=== PATIENT | male | born 1950 | race Caucasian/White ===

== ENCOUNTER 2022-10-01 09:59 | Outpatient (CLI) | payer MEDICARE, SELFPAY | END 2022-10-01 10:00 | disposition home or self-care (01) | LOC: OP CLINIC 10:02 | PROVIDERS: PCP Family Medicine; Visit Provider Internal Medicine | DX: Z12.11 Encounter for screening for malignant neoplasm of colon (principal) | CPT/HCPCS: 45378; J2250; J3010 ==

== ENCOUNTER 2023-01-21 08:11 | Outpatient (CLI) | payer MEDICARE, SELFPAY | END 2023-01-21 08:12 | disposition home or self-care (01) | PROVIDERS: PCP Family Medicine; Visit Provider Family Medicine | DX: R41.3 Other amnesia (principal); Z12.5 Encounter for screening for malignant neoplasm of prostate | CPT/HCPCS: 80053; 84153; 84443 ==

== ENCOUNTER 2023-02-01 07:44 | Outpatient (CLI) | payer MEDICARE, SELFPAY ==
--- NOTE | 2023-02-01 08:00 | CRLHL7_ITS ---
For Patients: As a result of the Century Cures Act, medical imaging exams and procedure reports are released immediately into your electronic medical record. You may view this report before your referring provider. If you have questions, please contact your health care provider. INDICATION: Memory loss. TECHNIQUE: Multiplanar multisequence noncontrast MR images acquired through the brain. COMPARISON: None. FINDINGS: Prominence of the ventricles and sulci compatible with mild diffuse cerebral volume loss. No mass effect or midline shift. Small T2 FLAIR hyperintensities scattered in the supratentorial white matter, nonspecific though typical for mild chronic microvascular ischemic changes. No intracranial hemorrhage or pathologic extra-axial fluid collection. No diffusion restriction to suggest acute infarction. The major arterial flow voids of the skullbase are preserved. The globes are symmetric. Hypoplastic right maxillary sinus. Mild paranasal sinus mucosal thickening. Trace bilateral mastoid effusions. IMPRESSION: 1. No acute infarction, mass effect, or intracranial hemorrhage. 2. Mild chronic microvascular ischemic changes and diffuse cerebral volume loss. Dictated by Marco Keller MD @ 02/01/2023 9:37:29 AM (Electronically Signed)
== END 2023-02-01 07:45 | disposition home or self-care (01) ==
LOC: MRI 07:45
PROVIDERS: PCP Family Medicine; Visit Provider Family Medicine
DX: R41.3 Other amnesia (principal); I67.82 Cerebral ischemia
CPT/HCPCS: 70551

== ENCOUNTER 2024-01-27 09:24 | Outpatient (CLI) | payer MEDICARE, SELFPAY | END 2024-01-27 09:25 | disposition home or self-care (01) | PROVIDERS: PCP Family Medicine; Visit Provider Family Medicine | DX: Z12.5 Encounter for screening for malignant neoplasm of prostate (principal); Z13.220 Encounter for screening for lipoid disorders; R41.3 Other amnesia | CPT/HCPCS: 80048; 80061; G0103 ==

== ENCOUNTER 2024-02-20 06:56 | Day surgery (SDC) | payer MEDICARE, SELFPAY ==
[2024-02-20] VITALS (13 sets, daily range): BP systolic 112–142; BP diastolic 63–81; PULSE 53–76; RESP 16; TEMP 36.2–36.7; O2SAT 94–96; BMI 32.1
--- OUTSIDE RECORDS SUMMARY | 2024-02-20 06:59 | XMS_ITS | Encounter Summary ---
Author Name Unknown Organization [place] Address [address] [place] [address] Care Team Providers Care Framing Machine Tender Name Role Phone Daniel Jc MD Unavailable [facility] Unavailabl e Encounter Details Date Type Department Care Team (Late st Contact Info) Description 02/01/2023 MyC Medical Advice [facility] [id number] [place] [id number] Eleni Elizabeth CMA Social History Tobacco Use Types Packs/Day Years Used Date Smoking Tobacco: Former Cigarettes 1.5 21 0 12/28/1963 - 12/27/1984 Smokeless Tobacco: Never Alcohol Use Standard Drinks/Week Comments No 0 (1 standard drink = 0.6 oz pur e alcohol) Stopped 1982 Social Connection and Isolat ion Panel [NHANES] Answer Date Recorded In a typical week, how many times do you talk on the phone with family, friends, or neighbors? More than three times a week 09/25/2021 How often do you get togethe r with friends or relatives? Three times a week 09/25/2021 How often do you attend chur ch or restorationist services? More than 4 times per year 09/25/2021 Do you belong to any clubs o r organizations such as pentecostalism groups, unions, fraternal or athletic groups, or school groups? Yes 09/25/2021 Attends Club or Organization Meetings Not on ami e 09/25/2021 Are you , , di vorced, , never , or living with a partner? 09/25/2021 AUDIT-C Answer Date Recorded Q1: How often do you have a drink containing alc ohol? Never 09/25/2021 Q2: How many drinks containi ng alcohol do you have on a typical day when you are drinking? Patient declined 09/25/2021 Q3: How often do you have si x or more drinks on one occasion? Patient declined 09/25/2021 Overall Financial Resource Strain (CARDIA) Answe r Date Recorded How hard is it for you to pa y for the very basics like food, housing, medical care, and heating? Not very hard 09/25/2021 PHQ-2 Answer Date Recorded PHQ-2 Score 1 09/25/2021 [facility] - Occupational Stress Questionnaire Answer Date Recorded Do you feel stress - tense, restless, nervous, or anxious, or unable to sleep at night because your mind is troubled all the time - these days? Only a little 09/25/2021 Exercise Vital Sign Answer Date Recorde d On average, how many days pe r week do you engage in moderate to strenuous exercise (like a brisk walk)? 3 days 09/25/2021 On average, how many minutes do you engage in exercise at this level? 30 min 09/25/2021 Hunger Vital Sign Answer Date Recorded Within the past 12 months, y ou worried that your food would run out before you got the money to buy more. Never true 09/25/20 21 Within the past 12 months, t he food you bought just didn't last and you didn't have money to get more. Never true 09/25/2021 PRAPARE - Transportation Answer Date Re corded In the past 12 months, has l ack of transportation kept you from medical appointments or from getting medications? No 09/09 In the past 12 months, has l ack of transportation kept you from meetings, work, or from getting things needed for daily living? No 09/25/2021 Housing Stability Vital Sign Answer Jeffy e Recorded In the last 12 months, was t here a time when you were not able to pay the mortgage or rent on time? Patient refused 09/25/20 21 In the last 12 months, how many places have you lived? 1 09/25/2021 In the last 12 months, was t here a time when you did not have a steady place to sleep or slept in a alf (including now)? No 09/25/2021 Sex and Gender Information Value Date Recorded Sex Assigned at Male 05/08/2021 9:40 AM CDT Gender Identity Not on file Sexual Orientation Straight 05/08/2021 9: 40 AM CDT documented as of this encounter Plan of Treatment Not on file documented as of this encounter Visit Diagnoses Not on filedocumented in this encounter Care Teams Framing Machine Tender Relationship Specialty [place] [address] [place] [address] Assigned PCP 12/04/22 09/30/23 [facility] [address] [place] [address] Assigned PCP 11/03/23 documented as of this encounter
--- OUTSIDE RECORDS SUMMARY | 2024-02-20 06:59 | XMS_ITS | Clinical Summary ---
Author Name Unknown Organization [place] Address [address] [place] [address]. [place] [address] Care Team Providers Care Technology Methodology Consultant Name Role Phone [facility] Unavailabl e Allergies No known active allergies Medications Medication Sig Dispensed Refills Start Date End Date Status MULTIVITAMINS OR TABS ONE DAILY 0 0 10/07/2009 Active Cholecalciferol (VITAMIN D) 2000 UNIT CAPS Take by mouth. One daily 08/31/2011 Active fish oil-omega-3 fatty acids (FISH OIL) 1000 MG capsule Take by mouth. ONE CAPSULE DAILY 180 capsule 11 08/31/2011 Active fluorouracil (EFUDEX) 5 % cream 03/17/2017 Active magnesium oxide (MAG-OX) 400 (241.3 Mg) MG tablet Take 1 tablet (400 mg) by mouth daily 08/17/2019 Active valACYclovir (VALTREX) 1000 mg tabletIndications:Re current cold sores Take 2 tablets (2,000 mg) by mouth 2 times daily 16 tablet 11 08/17/2019 Active Active Problems Problem Noted Date Diagnosed Date Leukocytopenia 01/02/2014 Advanced directives, counseling/discussion 08/31 Overview: Ordered, PT given brochure. Advance Care Planning 08/23/2016: ACP Review of Chart / Resources Provided: Reviewed chart for advance care plan. Nate Faustin Steven has no plan or code status on file however states presence of ACP document. Copy requested. Confirmed code status reflects current choices pending receipt of document/advance care plan review. Confirmed/documented legally designated decision makers. Added by Padmini Bush Resolved Problems Problem Noted Date Diagnosed Date Resolved Date CARDIOVASCULAR SCREENING; LD L GOAL LESS THAN 160 08/09/2010 08/20/2015 Immunizations Name Administration Dates Next Due Influenza (H1N1) 10/07/2009 Influenza (High Dose) 3 nella nt vaccine 08/17/2019,06/19/2018,08/30/2017,2016,08/23/2016,08/20/2015,07/12/2014 Influenza (IIV3) PF 06/13/2013, 2,06/10/2011,2004,08/14/2003 Influenza Vaccine 65+ (Fluzone HD) 07/25/2021, Pneumo Conj 13-V (2009&after) 08/20/2015 Pneumococcal 23 valent 07/30/2013 TDAP Vaccine (Adacel) 08/30/2017,03/07/2008 Twinrix A/B 11/26/2010,05/26/2010,04/23/2010 Typhoid Oral 04/23/2010 Zoster recombinant adjuvante d (SHINGRIX) 04/06/2019,01/27/2019 Zoster vaccine, live 02/28/2014 Family History Medical History Relation Comments Cancer Father Lymph Node Cance r Diabetes Mother Depression Son 1 Schitzo-Affectiv e Colon Cancer No family hx of Relation Status Comments Brother 1 Alive Brother 2 Alive Brother 3 Alive Brother 4 Brother 5 Father Mother Son 1 Alive Son 2 Alive Social History Tobacco Use Types Packs/Day Years [...] 09/25/2021 How often do you attend chur or religion services? More than 4 times per year 09/25/2021 Do you belong to any clubs o r organizations such as scientology groups, unions, fraternal or athletic groups, or [...] Answer Date Recorded PHQ-2 Score 1 09/25/2021 [facility] - Occupational Stress Questionnaire Answer Date Recorded [...] place to sleep or slept in a intermediate (including now)? No 09/25/2021 Adolescent Education Answer Date Record ed Getting School Help Needed Not on file 07/01 Sex and Gender Information Value Date Recorded Sex Assigned at Male 05/08/2021 9:40 AM CDT Gender Identity Not on file Sexual Orientation Straight 05/08/2021 9: 40 AM CDT Last Filed Vital Signs Vital Sign Reading Time Taken Comments Blood Pressure 119/73 09/25/2021 9:02 AM SATURATOR TENDER Pulse 70 09/25/2021 9:02 AM SATURATOR TENDER Temperature 36.9 ??C (98.5 ??F) 09/25/2021 9:02 AM CS T Respiratory Rate 14 09/25/2021 9:02 AM SATURATOR TENDER Oxygen Saturation 97% 06/12/2021 7:22 AM CDT Inhaled Oxygen Concentration - - Weight 87.1 kg (192 lb) 09/25/2021 9:02 AM SATURATOR TENDER Height 170.2 cm (5' 7) 09/25/2021 9:02 AM SATURATOR TENDER Body Mass Index 30.07 09/25/2021 9:02 AM SATURATOR TENDER Plan of Treatment Health Maintenance Due Date Last Done Comments CT COLONOGRAPHY 1950 FIT 1950 FLEX SIG 1950 sDNA (Cologuard) 1950 RSV VACCINE ( & 60+) (1 - 1-dose 60+ series) 2008 LUNG CANCER SCREENING 08/27/2016 08/27/2015 , 03/17/2010, 10/09/2009 ANNUAL REVIEW OF HM ORDERS 09/24/2021 09/24/2020 FALL RISK ASSESSMENT 09/25/2022 09/25/2021, 09/24/2020, 09/24/2020, Additional history exists COVID-19 Vaccine ( season) 2023 07/25/2021, 01/13/2021, 12/23/2020 PHQ-2 (once per calendar year) 2023 09/25/2021, 06/12/2021, 09/24/2020, Additional history exists MEDICARE ANNUAL WELLNESS VISIT 01/22/2024 01/21/2023, 01/21/2023, 01/21/2023, Additional history exists INFLUENZA VACCINE (Season Ended) 2024 07/25/2021, 06/10/2020, 08/17/2019, Additional history exists GLUCOSE 09/25/2024 09/25/2021, 09/09, 08/30/2018, Additional history exists LIPID 09/25/2026 09/25/2021, 08/11, 08/23/2016, Additional history exists ADVANCE CARE PLANNING 09/26/2026 09/26/2021 , 09/24/2020, 08/17/2019, Additional history exists DTAP/TDAP/TD IMMUNIZATION (3 - Td or Tdap) 08/30/2027 08/30/2017, 03/07/2008 COLONOSCOPY 10/01/2027 10/01/2022, 1202/2017, 09/13/2017, Additional history exists COLORECTAL CANCER SCREENING 10/01/2027 Pneumococcal Vaccine: 65+ Years Completed 08/20/2015, 07/30/2013 HEPATITIS C SCREENING Completed 08/23/2016 ZOSTER IMMUNIZATION Completed 04/06/2019, 01/27/2019, 02/28/2014 HPV IMMUNIZATION Aged Out No longer e ligible based on patient's age to complete this topic IPV IMMUNIZATION Aged Out No longer e ligible based on patient's age to complete this topic MENINGITIS IMMUNIZATION Aged Out No l onger eligible based on patient's age to complete this topic RSV MONOCLONAL ANTIBODY Aged Out No l onger eligible based on patient's age to complete this topic Procedures Procedure Name Priority Date/Time Associated Diagnosis Comments BASIC METABOLIC PANEL Routine 09/25/2021 10:10 AM SATURATOR TENDER Screening for diabetes mellitus LIPID REFLEX TO DIRECT LDL PANEL Routine 09/25/2021 10:10 AM SATURATOR TENDER Lipid screening COLONOSCOPY Routine 09/13/2017 9:37 AM SATURATOR TENDER HEPATITIS C ANTIBODY Routine 08/23/2016 7:45 AM SATURATOR TENDER Need for hepatitis C screening test CT CHEST W/O CONTRAST Routine 08/27/2015 11:34 AM SATURATOR TENDER Pulmonary nodule, left HC VENOUS COLLECTION Routine 12/21/2000 1:37 PM SATURATOR TENDER Acute Bronchitis from Last 3 Months or Most Recently Relevant to Health Maintenance Results * (ABNORMAL) Lipid panel reflex to direct LDL Fasting (09/25/2021 10:10 AM SATURATOR TENDER) Pathologist [facility] Cholesterol 182 <200 mg/dL 09/29/2021 8:41 AM SATURATOR TENDER [facility] Triglycerides 45 <150 mg/dL 09/29/2021 8:41 AM SATURATOR TENDER [facility] Direct Measure HDL 64 >=40 mg/dL 09/29/2021 8:41 AM SATURATOR TENDER [facility] LDL Cholesterol Calculated 109(H) <=100 mg/dL 09/29/2021 8:41 AM SATURATOR TENDER [facility] Non HDL Cholesterol 118 <130 mg/dL 09/29/2021 8:41 AM SATURATOR TENDER [facility] Patient Fasting > 8hrs? Yes 09/29/2021 8:41 AM SATURATOR TENDER [facility] Blood STRUCTURE OF RIGHT UPPER LIMB / Unknown Venipuncture / Unknown 09/25/2021 10:10 AM SATURATOR TENDER 09/25/2021 10:18 AM SATURATOR TENDER Narrative [facility] - 09/29/2021 8:41 AM SATURATOR TENDER Cholesterol Desirable: ??<200 mg/dL Triglycerides Normal: ??Less than 150 mg/dL Borderline High: ??150-199 mg/dL High: ??200-499 mg/dL Very High: ??Greater than or equal to 500 mg/dL Direct Measure HDL Female: ??Greater than or equal to 50 mg/dL Male: ??Greater than or equal to 40 mg/dL LDL Cholesterol Desirable: ??<100mg/dL Above Desirable: ??100-129 mg/dL Borderline High: ??130-159 mg/dL High: ??160-189 mg/dL Very High: ??>= 190 mg/dL Non HDL Cholesterol Desirable: ??130 mg/dL Above Desirable: ??130-159 mg/dL Borderline High: ??160-189 mg/dL High: ??190-219 mg/dL Very High: ??Greater than or equal to 220 mg/dL Bashir Velasquez MD LAB - BLOOD ORDERABL ES [facility] [address] [address], [facility] [phone] [facility] [address] Lab (no room number, 1st floor of clinic) [place] [address], [facility] [phone] * Basic metabolic panel (Ca, Cl, CO2, Creat, Gluc, K, Na, BUN) (09/25/2021 10:10 AM SATURATOR TENDER) Sodium 137 133 - 144 mmol/L 09/25/2021 5:37 PM SATURATOR TENDER [facility] Potassium 4.1 3.4 - 5.3 mmol/L 09/25/2021 5:37 PM SATURATOR TENDER [facility] Chloride 105 94 - 109 mmol/L 09/25/2021 5:37 PM SATURATOR TENDER [facility] Carbon Dioxide (CO2) 29 20 - 32 mmol/L 09/25/2021 5:37 PM SATURATOR TENDER [facility] Anion Gap 3 3 - 14 mmol/L 09/25/2021 5:37 PM SATURATOR TENDER [facility] Urea Nitrogen 13 7 - 30 mg/dL 09/25/2021 5:37 PM SATURATOR TENDER [facility] Creatinine 0.84 0.66 - 1.25 mg/dL 09/25/2021 5:37 PM SATURATOR TENDER [facility] Calcium 9.0 8.5 - 10.1 mg/dL 09/25/2021 5:37 PM SATURATOR TENDER [facility] Glucose 92 70 - 99 mg/dL 09/25/2021 5:37 PM SATURATOR TENDER [facility] GFR Estimate 87 >60 mL/min/1.7 3m2 09/25/2021 5:37 PM SATURATOR TENDER [facility] Comment:As of April 19, 2021, eGFR is calculated by the CKD-EPI creatinine equation, without race adjustment. eGFR can be influenced by muscle mass, exercise, and diet. The reported eGFR is an estimation only and is only applicable if the renal function is stable. Blood STRUCTURE OF RIGHT UPPER LIMB / Unknown Venipuncture / Unknown 09/25/2021 10:10 AM SATURATOR TENDER 09/25/2021 10:18 AM SATURATOR TENDER Bashir Velasquez MD LAB - BLOOD ORDERABL ES [facility] [address] Lab (no room number, 1st floor of clinic) [place] [address], [facility] [phone] * COLONOSCOPY (09/13/2017 9:37 AM SATURATOR TENDER) [facility] COLONOSCOPY [facility] Patient Name: Nate Harris ? Procedure Date: 09/13/2017 9:37 AM ? Date of : 1950 ?Admit Type: Outpatient Age: 67 ? Gender: Male Attending MD: Moustapha Martin MD ?? Total Sedation Time: __15___minutes continuous bedside 1:1 Instrument Name: [id number] ? Procedure: ?Colonoscopy Indications: ?High risk colon cancer surveillance: Personal ?history of colonic polyps Providers: ?Moustapha Martin MD (Doctor) Referring MD: ? Bashir Velasquez MD (Referring MD) Medicines: ?Midazolam 2 mg IV, Fentanyl 100 micrograms IV Complications: ?No immediate complications. Procedure: ?Pre-Anesthesia Assessment: ?- Prior to the procedure, a History and Physical ?was performed, and patient medications and ?allergies were reviewed. The patient is competent. ?The risks and benefits of the procedure and the ?sedation options and risks were discussed with the ?patient. All questions were answered and informed ?consent was obtained. Patient identification and ?proposed procedure were verified by the physician ?in the procedure room. Mental Status Examination: ?alert and oriented. Airway Examination: normal ?oropharyngeal airway and neck mobility. Respiratory ?Examination: clear to auscultation. CV Examination: ?normal. Prophylactic Antibiotics: The patient does ?not require prophylactic antibiotics. Prior ?Anticoagulants: The patient has taken no previous ?anticoagulant or antiplatelet agents. ASA Grade ?Assessment: II - A patient with mild systemic ?disease. After reviewing the risks and benefits, ?the patient was deemed in satisfactory condition to ?undergo the procedure. The anesthesia plan was to ?use moderate sedation / analgesia (conscious ?sedation). Immediately prior to administration of ?medications, the patient was re-assessed for ?adequacy to receive sedatives. The heart rate, ?respiratory rate, oxygen saturations, blood ?pressure, adequacy of pulmonary ventilation, and ?response to care were monitored throughout the ?procedure. The physical status of the patient was ?re-assessed after the procedure. ?After obtaining informed consent, the colonoscope ?was passed under direct vision. Throughout the ?procedure, the patient's blood pressure, pulse, and ?oxygen saturations were monitored continuously. The ?TRADE TO REBATEs Colonoscope Model #PCF-H190L, ?[place]ora#132, SN#[id number] was introduced through the ?and advanced to. The Olympus Peds Colonoscope Model ?#PCF-H190L, Endora#132, SN#[id number] was introduced ?through the anus and advanced to the cecum, ?identified by appendiceal orifice and ileocecal ?valve. The colonoscopy was performed without ?difficulty. The patient tolerated the procedure ?well. The quality of the bowel preparation was good. ? Findings: ? The perianal and digital rectal examinations were normal. ? The entire examined colon appeared normal on direct and retroflexion ? views. ? Impression: ? - The entire examined colon is normal on direct and ?retroflexion views. ?- No specimens collected. Recommendation: ? - Repeat colonoscopy in 5 years for surveillance. ? Procedure Code(s): ? --- Professional --- ? G0105, Colorectal cancer screening; colonoscopy on individual at high ? risk Diagnosis Code(s): ? --- Professional --- ? Z86.010, Personal history of colonic polyps CPT copyright 2016 [employer]. All rights reserved. The codes documented in this report are preliminary and upon professional fee coder review may be revised to meet current compliance requirements. Electronically signed by Moustapha Martin MD __ Moustapha Martin MD 09/13/2017 9:58:41 AM I was physically present for the entire viewing portion of the exam. Moustapha Martin MD Number of Addenda: 0 Note Initiated On: 09/13/2017 9:37 AM MRN: ?[id number] Procedure Date: ? 09/13/2017 9:37:12 AM Scope Withdrawal Time: 0 hours 8 minutes 2 seconds Total Procedure Duration: 0 hours 12 minutes 58 seconds Estimated Blood Loss: ? Scope In: 9:42:49 AM Scope Out: 9:55:47 AM RADIOLOGY RESULTS 09/13/2017 9:37 AM SATURATOR TENDER Bashir Velasquez MD PROCEDURES RADIOLOGY RESULTS * Hepatitis C antibody (08/23/2016 7:45 AM SATURATOR TENDER) Hepatitis C Antibody Nonreactive Assay performance characteristics have not been established for newborns, infants, and children NR [facility] Blood specimen (specimen) 08/23/2016 7:45 AM SATURATOR TENDER 08/23/2016 7:50 AM SATURATOR TENDER Bashir Velasquez MD LAB - BLOOD ORDERABL ES [facility] [address] [place] [address] * CT Chest w/o Contrast (08/27/2015 11:34 AM SATURATOR TENDER) Anatomical Region Laterality Modality Chest, SUBRAD CT BODY, UMP CT CHEST Computed Tomography Impressions 08/27/2015 12:35 PM SATURATOR TENDER IMPRESSION: Scattered small noncalcified pulmonary nodules in both lungs are unchanged dating back to 03/17/2010, and are, therefore, highly likely to be of benign etiology. LEI HOOPER MD Narrative 08/27/2015 12:[address] CHEST WITHOUT CONTRAST ?? 08/27/2015 11:34 AM HISTORY: Pulmonary nodule followup. TECHNIQUE: Volumetric helical acquisition was performed from the thoracic inlet through the upper abdomen without IV contrast. Coronal images were also reconstructed from the axial data. COMPARISON: Chest CT performed 03/17/2010. FINDINGS: Few small calcified granulomas are noted in both lungs. Scattered small noncalcified pulmonary nodules in both lungs are unchanged dating back to 03/17/2010 and are, therefore, highly likely to be of benign etiology. No new or enlarging pulmonary nodules are identified. Mild scarring and/or linear atelectasis at the right lung base posteriorly. Calcified mediastinal and right hilar lymph nodes are again noted. Few mildly enlarged mediastinal lymph nodes are unchanged compared to 03/17/2010. Limited noncontrast views of the upper abdomen are unremarkable. No pleural or pericardial effusions. Procedure Note Lei Hooper MD - 08/27/2015 CT CHEST WITHOUT CONTRAST 08/27/2015 11:34 AM HISTORY: Pulmonary nodule followup. TECHNIQUE: Volumetric helical acquisition was performed from the thoracic inlet through the upper abdomen without IV contrast. Coronal images were also reconstructed from the axial data. COMPARISON: Chest CT performed 03/17/2010. FINDINGS: Few small calcified granulomas are noted in both lungs. Scattered small noncalcified pulmonary nodules in both lungs are unchanged dating back to 03/17/2010 and are, therefore, highly likely to be of benign etiology. No new or enlarging pulmonary nodules are identified. Mild scarring and/or linear atelectasis at the right lung base posteriorly. Calcified mediastinal and right hilar lymph nodes are again noted. Few mildly enlarged mediastinal lymph nodes are unchanged compared to 03/17/2010. Limited noncontrast views of the upper abdomen are unremarkable. No pleural or pericardial effusions. IMPRESSION IMPRESSION: Scattered small noncalcified pulmonary nodules in both lungs are unchanged dating back to 03/17/2010, and are, therefore, highly likely to be of benign etiology. LEI HOOPER MD Bashir Velasquez MD IMG CT ORDERABLES * WET PREP (FV) (12/21/2000 3:44 PM SATURATOR TENDER) PMNs Wet Prep many [facility] Yeast Wet Prep none seen [facility] Mycelia Wet Prep none seen [facility] Trichomonas Wet Prep none seen [facility] Clue cells moderate [facility] Specimen from vagina (specimen) Narrative [facility] - 12/21/2000 3:44 PM SATURATOR TENDER result data entered by: [id number] Basia Villar APRN ENVIRONMENTAL SCIENCE PROGRAM DIRECTOR LABORATORY [facility] from Last 3 Months or Most Recently Relevant to Health Maintenance Care Teams Technology Methodology Consultant Relationship Specialty Start Date End Date Clinic - [facility] [address] [place] [address] Assigned PCP 11/03/23
--- OUTSIDE RECORDS SUMMARY | 2024-02-20 06:59 | XMS_ITS | Encounter Summary ---
Author Name Unknown Organization [place] Address [address] [facility] [place] [address] Care Team Providers Care Junior Technical Writer Name Role Phone Daniel Jc MD [facility] En[facility] Details Date Type Department Care Team (Late st Contact Info) Description 12/21/2022 MyC Medical Advice [facility] [id number] [place] [phone] [place] [address] [place] [address] Social History Tobacco Use Types Packs/Day Years [...] How often do you attend chur or catholic services? More than 4 times per year 09/25/2021 Do you belong to any clubs o r organizations such as presybeterian groups, unions, fraternal or athletic groups, or [...] Answer Date Recorded PHQ-2 Score 1 09/25/2021 [facility] - Occupational Stress Questionnaire Answer Date [...] place to sleep or slept in a skilled nursing (including now)? No 09/25/2021 Sex and Gender Information Value Date Recorded Sex Assigned at Male 05/08/2021 9:40 AM CDT Gender Identity Not on file Sexual Orientation Straight 05/08/2021 9: 40 AM CDT documented as of this encounter Plan of Treatment Not on file documented as of this encounter Visit Diagnoses Not on filedocumented in this encounter Care Teams Junior Technical Writer Relationship Specialty [place] [address] [place] [address] Assigned PCP 12/04/22 09/30/23 [facility] [id number] [place] [address] Assigned PCP 11/03/23 documented as of this encounter
--- OUTSIDE RECORDS SUMMARY | 2024-02-20 06:59 | XMS_ITS | Referral Summary ---
Author Name Unknown Organization [place] Address [address] [place] [address]. [place] [address] Care Team Providers Care Dynamiter Name Role Phone [facility] Unavailabl e Allergies No known active allergies [...] d (SHINGRIX) 04/06/2019,01/27/2019 Zoster vaccine, live 02/28/2014 Social History Tobacco Use Types Packs/Day Years [...] often do you attend chur ch or presybeterian services? More than 4 times per year 09/25/2021 Do you belong to any clubs o r organizations such as moravian groups, unions, fraternal or athletic groups, or [...] Answer Date Recorded PHQ-2 Score 1 09/25/2021 [facility] - Occupational Stress Questionnaire Answer Date Recorded [...] place to sleep or slept in a care home (including now)? No 09/25/2021 Adolescent Education Answer Date Record ed Getting School Help Needed Not on file 07/01 Sex and Gender Information Value Date Recorded Sex Assigned at Male 05/08/2021 9:40 AM CDT Gender Identity Not on file Sexual Orientation Straight 05/08/2021 9: 40 AM CDT Last Filed Vital Signs Vital Sign Reading Time Taken Comments Blood Pressure 119/73 09/25/2021 9:02 AM MANAGER SHIPPING Pulse 70 09/25/2021 9:02 AM MANAGER SHIPPING Temperature 36.9 ??C (98.5 ??F) 09/25/2021 9:02 AM CS T Respiratory Rate 14 09/25/2021 9:02 AM MANAGER SHIPPING Oxygen Saturation 97% 06/12/2021 7:22 AM CDT Inhaled Oxygen Concentration - - Weight 87.1 kg (192 lb) 09/25/2021 9:02 AM MANAGER SHIPPING Height 170.2 cm (5' 7) 09/25/2021 9:02 AM MANAGER SHIPPING Body Mass Index 30.07 09/25/2021 9:02 AM MANAGER SHIPPING Plan of Treatment Not on file Procedures Procedure Name Priority Date/Time Associated Diagnosis Comments BASIC METABOLIC PANEL Routine 09/25/2021 10:10 AM MANAGER SHIPPING Screening for diabetes mellitus LIPID REFLEX TO DIRECT LDL PANEL Routine 09/25/2021 10:10 AM MANAGER SHIPPING Lipid screening COLONOSCOPY Routine 09/13/2017 9:37 AM MANAGER SHIPPING HEPATITIS C ANTIBODY Routine 08/23/2016 7:45 AM MANAGER SHIPPING Need for hepatitis C screening test CT CHEST W/O CONTRAST Routine 08/27/2015 11:34 AM MANAGER SHIPPING Pulmonary nodule, left HC VENOUS COLLECTION Routine 12/21/2000 1:37 PM MANAGER SHIPPING Acute Bronchitis from Last 3 Months or Most Recently Relevant to Health Maintenance Results * (ABNORMAL) Lipid panel reflex to direct LDL Fasting (09/25/2021 10:10 AM MANAGER SHIPPING) Cholesterol 182 <200 mg/dL 09/29/2021 8:41 AM MANAGER SHIPPING [facility] Triglycerides 45 <150 mg/dL 09/29/2021 8:41 AM MANAGER SHIPPING [facility] Direct Measure HDL 64 >=40 mg/dL 09/29/2021 8:41 AM MANAGER SHIPPING [facility] LDL Cholesterol Calculated 109(H) <=100 mg/dL 09/29/2021 8:41 AM MANAGER SHIPPING [facility] Non HDL Cholesterol 118 <130 mg/dL 09/29/2021 8:41 AM MANAGER SHIPPING [facility] Patient Fasting > 8hrs? Yes 09/29/2021 8:41 AM MANAGER SHIPPING [facility] Blood STRUCTURE OF RIGHT UPPER LIMB / Unknown Venipuncture / Unknown 09/25/2021 10:10 AM MANAGER SHIPPING 09/25/2021 10:18 AM MANAGER SHIPPING Narrative [facility] - 09/29/2021 8:41 AM MANAGER SHIPPING Cholesterol Desirable: ??<200 mg/dL Triglycerides Normal: ??Less [...] LAB - BLOOD ORDERABL ES [facility] [address] [place] [address], [facility] [place] [phone] [facility] [address] Lab (no room number, 1st floor of clinic) [place] [address], [place] [phone] * Basic metabolic panel (Ca, Cl, CO2, Creat, Gluc, K, Na, BUN) (09/25/2021 10:10 AM MANAGER SHIPPING) Sodium 137 133 - 144 mmol/L 09/25/2021 5:37 PM MANAGER SHIPPING [facility] Potassium 4.1 3.4 - 5.3 mmol/L 09/25/2021 5:37 PM MANAGER SHIPPING [facility] Chloride 105 94 - 109 mmol/L 09/25/2021 5:37 PM MANAGER SHIPPING [facility] Carbon Dioxide (CO2) 29 20 - 32 mmol/L 09/25/2021 5:37 PM MANAGER SHIPPING [facility] Anion Gap 3 3 - 14 mmol/L 09/25/2021 5:37 PM MANAGER SHIPPING [facility] Urea Nitrogen 13 7 - 30 mg/dL 09/25/2021 5:37 PM MANAGER SHIPPING [facility] Creatinine 0.84 0.66 - 1.25 mg/dL 09/25/2021 5:37 PM MANAGER SHIPPING [facility] Calcium 9.0 8.5 - 10.1 mg/dL 09/25/2021 5:37 PM MANAGER SHIPPING [facility] Glucose 92 70 - 99 mg/dL 09/25/2021 5:37 PM MANAGER SHIPPING [facility] GFR Estimate 87 >60 mL/min/1.7 3m2 09/25/2021 5:37 PM MANAGER SHIPPING [facility] Comment:As of April 19, 2021, eGFR is calculated by the CKD-EPI creatinine equation, without race adjustment. eGFR can be influenced by muscle mass, exercise, and diet. The reported eGFR is an estimation only and is only applicable if the renal function is stable. Blood STRUCTURE OF RIGHT UPPER LIMB / Unknown Venipuncture / Unknown 09/25/2021 10:10 AM MANAGER SHIPPING 09/25/2021 10:18 AM MANAGER SHIPPING Bashir Velasquez MD LAB - BLOOD ORDERABL ES [facility] [address] Lab (no room number, 1st floor of clinic) [place] [address], [facility] [place] [phone] * COLONOSCOPY (09/13/2017 9:37 AM MANAGER SHIPPING) COLONOSCOPY [facility] Patient Name: Nate Harris ? Procedure [...] and ?oxygen saturations were monitored continuously. The ?Olympus Peds Colonoscope Model #PCF-H190L, ?[place]#132, SN#[id number] was introduced through the ?and advanced to. The Olympus Peds Colonoscope Model ?#PCF-H190L, [place]#132, SN#[id number] was introduced ?through the anus and advanced [...] history of colonic polyps CPT copyright 2016 [employer]. All rights reserved. The codes documented in this report are preliminary and upon strip machine operator review may be revised to meet current compliance requirements. Electronically signed by Moustapha Martin MD __ Moustapha Martin MD 09/13/2017 9:58:41 AM I was physically present for the entire viewing portion of the exam. Moustapha Martin MD Number of Addenda: 0 Note Initiated On: 09/13/2017 9:37 AM MRN: ?[id number] Procedure Date: ? 09/13/2017 9:37:12 AM Scope Withdrawal Time: 0 hours 8 minutes 2 seconds Total Procedure Duration: 0 hours 12 minutes 58 seconds Estimated Blood Loss: ? Scope In: 9:42:49 AM Scope Out: 9:55:47 AM RADIOLOGY RESULTS 09/13/2017 9:37 AM MANAGER SHIPPING Bashir Velasquez MD PROCEDURES Performing Organization Address City/[facility]/ZIP Co de Phone Number RADIOLOGY RESULTS * Hepatitis C antibody (08/23/2016 7:45 AM MANAGER SHIPPING) Hepatitis C Antibody Nonreactive Assay performance characteristics have not been established for newborns, infants, and children NR [facility] Blood specimen (specimen) 08/23/2016 7:45 AM MANAGER SHIPPING 08/23/2016 7:50 AM MANAGER SHIPPING Bashir Velasquez MD LAB - BLOOD ORDERABL ES [facility] [address] [place] [address] * CT Chest w/o Contrast (08/27/2015 11:34 AM MANAGER SHIPPING) Anatomical Region Laterality Modality Chest, SUBRAD CT BODY, UMP CT CHEST Computed Tomography Impressions 08/27/2015 12:35 PM MANAGER SHIPPING IMPRESSION: Scattered small noncalcified pulmonary nodules in both lungs are unchanged dating back to 03/17/2010, and are, therefore, highly likely to be of benign etiology. LEI HOOPER MD Narrative 08/27/2015 12:[address] CHEST WITHOUT CONTRAST ?? 08/27/2015 11:34 [...] * WET PREP (FV) (12/21/2000 3:44 PM MANAGER SHIPPING) PMNs Wet Prep many [facility]IR[facility] EW [facility] Yeast Wet Prep none seen [facility] IEW [facility] Mycelia Wet Prep none seen LORI RVIEW [facility] Trichomonas Wet Prep none seen [facility] Clue cells moderate [facility] Specimen from vagina (specimen) Narrative [facility] - 12/21/2000 3:44 PM MANAGER SHIPPING result data entered by: [id number] Basia Villar APRN PHYSICAL TESTING SUPERVISOR LABORATORY [facility] from Last 3 Months or Most Recently Relevant to Health Maintenance Care Teams Dynamiter Relationship Specialty Start Date End Date Clinic - [facility] [address] [place] [address] Assigned PCP 11/03/23
--- OUTSIDE RECORDS SUMMARY | 2024-02-20 07:00 | XMS_ITS | Encounter Summary ---
Author Name Unknown Organization [place] Address [address] [facility] [place] [address] Care Team Providers Care Critical Care Physician Name Role Phone Bashir Velasquez MD Primary Care Provider Daniel Jc MD Unavailable Bashir Velasquez MD Unavailable [phone] BabitaDaniel gastelum MD Unavailable Daniel Jc MD Unavailable [facility] Unavailabl e Encounter Details Date Type Department Care Team (Late st Contact Info) Description 05/08/2021 MyC Medical Advice [facility] [address] [place] [phone] [place] [address] [place] [address] Social History Tobacco Use Types Packs/Day Years Used Date Smoking Tobacco: Former Cigarettes 1.5 21 0 12/28/1963 - 12/27/1984 Smokeless Tobacco: Never Alcohol Use Standard Drinks/Week Comments No 0 (1 standard drink = 0.6 oz pur e alcohol) Stopped 1982 PHQ-2 Answer Date Recorded PHQ-2 Score 0 09/24/2020 Sex and Gender Information Value Date Recorded Sex Assigned at Male 05/08/2021 9:40 AM CDT Gender Identity Not on file Sexual Orientation Straight 05/08/2021 9: 40 AM CDT documented as of this encounter Plan of Treatment Not on file documented as of this encounter Visit Diagnoses Not on filedocumented in this encounter Care Teams Critical Care Physician Relationship Specialty Start Date End Date Bashir Velasquez MD PCP - General Family Practice 04/02/14 08/08/22 [place] [address] [place] [address] Assigned PCP 10/05/20 06/13/21 [place] [address] [place] [address] Assigned PCP 06/14/21 06/25/22 [place] [address] [place] [address] Assigned PCP 06/26/22 09/24/22 [place] [address] [place] [address] Assigned PCP 12/04/22 09/30/23 [facility] [address] [place] [address] Assigned PCP 11/03/23 documented as of this encounter
--- OUTSIDE RECORDS SUMMARY | 2024-02-20 07:00 | XMS_ITS | Continuity of Care Document ---
Author Name Unknown Organization [facility] Address [address] [address] [place] [address] Phone Care Team Providers Care Carpenter'S Helper Name Role Phone Unavailable Unavailable Unavailable Allergies, Adverse Reactions, Alerts Substance Reaction Status Criticality No Known allergies Medications Medication Instructions Dosage Effective Dates (start - stop) Status Comments Aspirin Low Dose 81 mg Tab, Delayed Release Take 1 tablet by mouth daily - Active Procedures Procedure Date Colonoscopy Flex; Dx (sep Pro) 07 Advance Directives Directive Yes / No Effective Date File Name No Information Encounters Encounter Description Practice Location Reason(s) For Visit Diagnoses Date Provider Providers Copied on Encounter [facility] [place], [address] [address], [place], [place], [id number], tel:[phone] [facility] Personal History Colon Polyps No Information Referring Provider: [place] R, [address] [place], [address]. tel:[phone] Family History Family Member Type Diagnosis Age At Onset No Information Payers Payer name Insurance type Covered constitution party ID Authoriza tion(s) No Information Social History Type Description Quantity Date Captured Comments Sex Male Smoking Status No Information Chief Complaint And Reason For Visit No Information Reason For Referral Reason For Referral No Information History Of Present Illness Encounter Date Complaint History Of Prese nt Illness No Information Functional Status Date Functional Assessmen t No Information Instructions Date Instruction Additional Infor mation No Information Assessments Type Assessment Date No Information Patient Care Teams Name Effective Dates (start - stop) Status Members No Information
--- OUTSIDE RECORDS SUMMARY | 2024-02-20 07:00 | XMS_ITS | Encounter Summary ---
Author Name Unknown Organization [place] Address [address] [place] [address] Care Team Providers Care System Administrator Name Role Phone Bashir Velasquez MD Primary Care Provider Bashir Velasquez MD Unavailable [phone] BabitaDaniel gastelum MD Unavailable Bashir Velasquez MD Unavailable [phone] BabitaDaniel gastelum MD Unavailable Daniel Jc MD Unavailable [facility] Unavailabl e Reason for Visit * Reason Onset Date Comments MyChart Communication 01/08/2019 Encounter Details Date Type Department Care Team (Late st Contact Info) Description 01/08/2019 [facility] [address] [place] [phone] [place] [address] [facility] [place] [address] MyChart Communication Social History Tobacco Use Types Packs/Day Years Used Date Smoking Tobacco: Former Cigarettes 1.5 21 0 12/28/1963 - 12/27/1984 Smokeless Tobacco: Never Alcohol Use Standard Drinks/Week Comments No 0 (1 standard drink = 0.6 oz pur e alcohol) Stopped 1982 PHQ-2 Answer Date Recorded PHQ-2 Score 0 10/17/2018 Sex and Gender Information Value Date Recorded Sex Assigned at Male 05/08/2021 9:40 AM CDT Gender Identity Not on file Sexual Orientation Straight 05/08/2021 9: 40 AM CDT documented as of this encounter Miscellaneous Notes * Telephone Encounter - Bashir Velasquez MD - 01/08/2019 10:39 AM CDT Shingles vaccine is recommended for all people 50 and older. It is not necessary to determine if a patient had chickenpox in the past. The vast majority of adults have had chickenpox even if a case is not remembered as not everybody has the same amount of symptoms or rash. Even if there was not chickenpox in the past the rate of side effects is not significantly different for the single risks of vaccine. Ok for vaccine. * Telephone Encounter - Marlene Monzon RN - 01/08/2019 8:35 AM CDT Please advise Unsure what the answer is Marlene Monzon RN, BSN documented in this encounter Plan of Treatment Not on file documented as of this encounter Visit Diagnoses Not on filedocumented in this encounter Care Teams System Administrator Relationship Specialty Start Date End Date Bashir Velasquez MD PCP - General Family Practice 04/02/14 08/08/22 [place] [address] [place] [address] Assigned PCP 01/07/14 10/04/20 [place] [address] [place] [address] Assigned PCP 10/05/20 06/13/21 [place] [address] [facility] [place] [address] Assigned PCP 06/14/21 06/25/22 [place] [address] [place] [address] Assigned PCP 06/26/22 09/24/22 [place] [address] [place] [address] Assigned PCP 12/04/22 09/30/23 [facility] [address] [place] [address] Assigned PCP 11/03/23 documented as of this encounter
--- OUTSIDE RECORDS SUMMARY | 2024-02-20 07:00 | XMS_ITS | Continuity of Care Document ---
Author Name Unknown Organization [facility] Address [address] [address] [place] [address] Phone Care Team Providers Care Branch Manager Name Role Phone Unavailable Unavailable Unavailable Allergies, [...] Diagnoses Date Provider Providers Copied on Encounter [facility] [place], [address] [address], [place], [place], [id number], tel:[phone] [facility] Personal History Colon Polyps No Information Referring Provider: [place] R, [address] [place], [address]. tel:[phone] Family History Family Member Type Diagnosis Age At Onset No Information Payers Payer name Insurance type Covered democrat ID Authoriza tion(s) No Information Social History [...]
--- OUTSIDE RECORDS SUMMARY | 2024-02-20 07:00 | XMS_ITS | Encounter Summary ---
Author Name Unknown Organization [place] Address [address] [place] [address] Care Team Providers Care Nuclear Medicine Specialist Name Role Phone Shad Kruger MD Primary Care Provider [phone] Bashir Velasquez MD Primary Care Provider [phone] Bashir Velasquez MD Unavailable [phone] Bashir Velasquez MD Unavailable BabitaDaniel gastelum MD Unavailable Bashir Velasquez MD Unavailable BabitaDaniel gastelum MD Unavailable BabitaDaniel gastelum MD Unavailable [facility] Unavailabl e Reason for Visit * Reason Onset Date Comments MyChart Communication 03/12/2010 scan f/u Encounter Details Date Type Department Care Team (Latest Contact Info) Description 03/12/2010 MyC Medical [facility] [address] [place] [phone] [place] [id number] [place] [phone] MyChart Communication (scan f/u) Social History Tobacco Use Types Packs/Day Years Used Date Smoking Tobacco: Former Cigarettes 0 12/28/1963 - 12/27/1984 Alcohol Use Standard Drinks/Week Comments No 0 (1 standard drink = 0.6 oz pur e alcohol) Sex and Gender Information Value Date Recorded Sex Assigned at Male 05/08/2021 9:40 AM CDT Gender Identity Not on file Sexual Orientation Straight 05/08/2021 9: 40 AM CDT documented as of this encounter Plan of Treatment Not on file documented as of this encounter Procedures Procedure Name Priority Date/Time Associated Diagnosis Comments HC CT THORAX W/O CONT Routine 03/17/2010 3:12 PM CDT Pulmonary nodules documented in this encounter Results * CT SCAN CHEST (03/17/2010 3:12 PM CDT) Anatomical Region Laterality Modality Other 03/17/2010 3:12 PM CDT Impressions 03/18/2010 1:[address] CHEST FOR NODULE ?? Mar 17, 2010 3:12:00 PM HISTORY: Six month followup left upper lobe lung nodule. COMPARISON: CT chest 10/09/2009. TECHNIQUE: Axial images from the thoracic inlet to the lung bases are performed with additional coronal reformatted images. No contrast is utilized. FINDINGS: Mild reticulonodular changes are again noted in the posterior right lung apex. The 0.45 cm nodule in the posterior left upper lobe is again noted. A calcified granuloma is present in the lateral right midlung on image 27. An additional tiny indeterminate 0.4 cm nodule is present in the right lower lobe on image 33. Linear scarring is again noted at the posterior right lung base. An additional calcified granuloma is present in the left lower lobe on image 29. A few additional tiny indeterminate lung nodules are scattered throughout both lungs and again appear stable. Findings may be related to old granulomatous disease. No pleural or pericardial fluid is present. Calcified mediastinal and hilar lymph nodes are present again consistent with old granulomatous disease. Postsurgical changes are noted in the region of the right shoulder. Bone window examination is otherwise within normal limits. Mild degenerative spine changes are present. IMPRESSION: 1. No interval change in the noncalcified left upper lobe lung nodule. Additional areas of reticulonodular change and tiny indeterminate lung nodules within each lung are stable. Findings are likely related to old granulomatous disease. Additional one year interval followup could be performed to confirm half-way stability. 2. Calcified mediastinal and hilar lymph nodes are consistent with old granulomatous disease. Right and left lung calcified granulomas are also noted and unchanged. Shad Kruger MD SPECIAL IMAGING STUD IES documented in this encounter Visit Diagnoses Diagnosis Pulmonary nodules- Primary Other nonspecific abnormal finding of lung field documented in this encounter Care Teams Nuclear Medicine Specialist Relationship Specialty Start [place] [address] [place] [address] PCP - General 10/23/99 04/01/14 [place] [address] [place] [address] PCP - General Family Practice 04/02/14 08/08/22 [place] [address] [place] [address] PCP - Assigned PCP 01/07/14 12/12/18 [place] [address] [place] [address] Assigned PCP 01/07/14 10/04/20 [place] [address] [place] [address] Assigned PCP 10/05/20 06/13/21 [place] [address] [place] [address] Assigned PCP 06/14/21 06/25/22 [place] [address] [place] [address] Assigned PCP 06/26/22 09/24/22 [place] [address] [place] [address] Assigned PCP 12/04/22 09/30/23 [facility] [address] [place] [address] Assigned PCP 11/03/23 documented as of this encounter
--- OUTSIDE RECORDS SUMMARY | 2024-02-20 07:00 | XMS_ITS | Encounter Summary ---
Author Name Unknown Organization [facility] Address [address] [place] [address]. [place] [address] Care Team Providers Care Verify Rep Name Role Phone Shda Kruger MD Primary Care Provider Bashir Velasquez MD Primary Care Provider [phone] Bashir Velasquez MD Unavailable Bashir Velasquez MD Unavailable [phone] BabitaDaniel gastelum MD Unavailable Bashir Velasquez MD Unavailable BabitaDaniel gastelum MD Unavailable BabitaDaniel gastelum MD Unavailable [facility] Unavailabl e Reason for Visit * Reason Onset Date Comments Results 10/13/2009 labs Encounter Details Date Type Department Care Team (Late st Contact Info) Description 10/13/2009 MyC Medical Advice [facility] [id number] [place] [address] [phone] [place] [address] [place], [place] [id number] Results (labs) Social History Tobacco Use Types Packs/Day Years [...] encounter Miscellaneous Notes * Telephone Encounter - Shad Kruger - 10/15/2009 1:[address] is ok just take recommendations from the radiologist OF BIOLOGY * Telephone Encounter - Jaki Hobbs - 10/15/2009 12:58 PM CST How about the chest CT? IMPRESSION: 1. Nodular opacities seen on recent chest radiograph correspond to benign calcified granulomas. 2. 0.5 cm noncalcified nodule in the left lung apex. Limited followup CT in six months is recommended to ensure stability. Jaki Hobbs RN OF BIOLOGY * Telephone Encounter - Shad Kruger - 10/15/2009 10:23 AM CST His ldl is elevated. Not taking anything consider 20 simvastatin. OF BIOLOGY * Telephone Encounter - Jaki Hobbs - 10/13/2009 2:35 PM CST Pt would like you to review ALL lab results from [id number] AND CT results from [id number]. Please respond back to him via My Chart Thanks, Jaki Hobbs RN OF BIOLOGY documented in this encounter Plan of Treatment Not on file documented as of this encounter Visit Diagnoses Not on filedocumented in this encounter Care Teams Verify Rep Relationship Specialty [place] [address] [place] [address] PCP - General 10/23/99 04/01/14 [place] [address] [place] [address] PCP - General Family Practice 04/02/14 08/08/22 [place] [address] [place] [address] PCP - Assigned PCP 01/07/14 12/12/18 [place] [address] [place] [address] Assigned PCP 01/07/14 10/04/20 [place] [address] [place] [address] Assigned PCP 10/05/20 06/13/21 [place] [address] [place] [address] Assigned PCP 06/14/21 06/25/22 [place] [address] [place] [address] Assigned PCP 06/26/22 09/24/22 [place] [address] [place] [address] Assigned PCP 12/04/22 09/30/23 [facility] [address] [place] [address] Assigned PCP 11/03/23 documented as of this encounter
--- OUTSIDE RECORDS SUMMARY | 2024-02-20 07:00 | XMS_ITS | Clinical Summary ---
Author Name Unknown Organization [facility] Address [place], [place] [address] Care Team Providers Care Health Coach Name Role Phone Shad Kruger Primary Care Provider [phone] Allergies No known active allergies Medications No known medications Active Problems Problem Noted Date Diagnosed Date Adenomatous colon polyp 10/17/2012 Overview: Colonoscopy 10/2012 normal repeat in 5 years Social History Tobacco Use Types Packs/Day Years Used Date Smoking Tobacco: Former Cigarettes Q uit: 12/27/1984 Alcohol Use Standard Drinks/Week Comments Not Asked 0 (1 standard drink = 0.6 oz pur e alcohol) Sex and Gender Information Value Date Recorded Sex Assigned at Not on file Gender Identity Not on file Sexual Orientation Not on file Obstetrics History Last Filed Vital Signs Vital Sign Reading Time Taken Comments Blood Pressure 111/64 10/13/2012 8:59 AM CERAMICS ARTIST Pulse 59 10/13/2012 8:59 AM CERAMICS ARTIST Temperature - - Respiratory Rate - - Oxygen Saturation 94% 10/13/2012 8:59 AM CERAMICS ARTIST Inhaled Oxygen Concentration - - Weight - - Height - - Body Mass Index - - Plan of Treatment Health Maintenance Due Date Last Done Comments Tdap 1959 Depression screening for age 12+ 1960 BMI (ht and wt on same day) for age 18+ 1966 Hepatitis C screening for age 18-79 1966 Tetanus booster 1968 Lipids for age 45-75 1993 Zoster (shingles) series for age 50+ (1 of 2) 1998 Pneumococcal series for age 65+ (1 of 1 - PCV) 2013 Colonoscopy through age 75 10/13/201710/13, 10/13/2012, 10/13/2012 COVID-19 vaccine series ( season) 2023 Influenza for age 65+ 06/10/2024 Care Teams Health Coach Relationship Specialty Start Date End Date Shad Kruger PCP - General Family Practice 10/13/12
--- OUTSIDE RECORDS SUMMARY | 2024-02-20 07:00 | XMS_ITS | Encounter Summary ---
Author Name Unknown Organization [facility] Address [address] [facility] [place] [address] Care Team Providers Care Discount Clerk Name Role Phone Bashir Velasquez MD Primary Care Provider Bashir Velasquez MD Unavailable Bashir Velasquez MD Unavailable Daniel Jc MD Unavailable Bashir Velasquez MD Unavailable Daniel Jc MD Unavailable Daniel Jc MD Unavailable [facility] Unavailabl e Encounter Details Date Type Department Care Team (Late st Contact Info) Description 08/27/2015 [facility] [address] [place] [address] [place] [address] [place] [address] Social History Tobacco Use Types Packs/Day Years Used Date Smoking Tobacco: Former Cigarettes 1.5 21 0 12/28/1963 - 12/27/1984 Smokeless Tobacco: Never Alcohol Use Standard Drinks/Week Comments No 0 (1 standard drink = 0.6 oz pur e alcohol) Stopped 1982 Sex and Gender Information Value Date Recorded Sex Assigned at Male 05/08/2021 9:40 AM CDT Gender Identity Not on file Sexual Orientation Straight 05/08/2021 9: 40 AM CDT documented as of this encounter Plan of Treatment Not on file documented as of this encounter Visit Diagnoses Not on filedocumented in this encounter Care Teams Discount Clerk Relationship Specialty Start Date End Date Bashir Velasquez MD PCP - General Family Practice 04/02/14 08/08/22 [place] [address] [place] [address] PCP - Assigned PCP 01/07/14 12/12/18 [place] [address] [place] [address] Assigned PCP 01/07/14 10/04/20 [place] [address] [place] [address] Assigned PCP 10/05/20 06/13/21 [place] [address] [place] [address] Assigned PCP 06/14/21 06/25/22 [place] [address] [place] [address] Assigned PCP 06/26/22 09/24/22 [place] [address] [place] [address] Assigned PCP 12/04/22 09/30/23 [facility] [address] [place] [address] Assigned PCP 11/03/23 documented as of this encounter
[2024-02-20] MEDS: LACTATED RINGERS 1000 ML 1,000 ML 100 ML IV (07:05)
[2024-02-20] MEDS: SODIUM CHLORIDE 0.9 % (FLUSH) 10 ML SYRINGE IVF (07:30)
--- NOTE | 2024-02-20 08:40 | W.PM.H&PU ---
History & Physical Update History & Physical Update H&P Reviewed and patient assessed: No changes noted
--- NOTE | 2024-02-20 08:46 | PM.GSPRC ---
Operative Note Date of procedure: 02/20/24 Pre-op diagnosis: 1. Symptomatic left inguinal hernia. Post-op diagnosis: 1. Indirect left inguinal hernia with cord lipoma. Type of Procedure: 1. Laparoscopic left inguinal hernia repair with mesh. Indications: 73-year-old active male presented to clinic for evaluation of a left inguinal hernia. Patient noticed a left inguinal bulge several weeks prior to his presentation. The bulge was not painful when he noticed it. Patient does a lot of walking. On clinical exam there was a noticeable soft tissue asymmetry in the left inguinal canal consistent with small inguinal hernia. With the patient standing up and doing Valsalva the small inguinal hernia was again palpated and was reduced. Given patient's clinical history and his physical exam, conservative treatment versus surgical treatment were discussed. Patient initially elected to proceed with conservative treatment however he later changed his mind and desired surgical repair. The procedure was discussed in detail. The risks associated with the procedure including infection, bleeding, injury to preperitoneal organs, nerve pain, and hernia recurrence were all discussed with the patient, and he agreed to proceed. Procedure Description: After discussing the risks and benefits of the procedure, the patient signed informed consent.? The operative site was marked and the patient was brought to the operating room and placed on the operating table in supine position.? Care was taken to pad the patient's pressure points.?? The patient was then intubated by anesthesia.?? The operative site was then prepped and draped in the usual sterile fashion.? A time-out was then performed. An infraumbilical skin incision was made with a scalpel and subcutaneous tissues were dissected with electrocautery. Anterior sheath was incised with electrocautery and rectus muscle was retracted laterally. A 12 mm spacemaker dissector system was introduced into the incision and advanced over the posterior sheath. Preperitoneal space was dissected with manually insufflating air under direct visualization. Once the tissues were dissected, the balloon was deflated and removed.? A laparoscopic balloon was placed into preperitoneal space and balloon was inflated. Preperitoneal space was insufflated with air. No bleeding was identified upon examination of preperitoneal space. We then placed two 5 mm ports suprapubically under direct visualization. ? The preperitoneal tissues were bluntly dissected with graspers.? The pubic bone was identified and? cleared from preperitoneal tissue.?? Inferior epigastrics on left?side were retracted towards the abdominal wall.?? Spermatic cord? was identified and dissected circumferentially.? This was done bluntly. The left indirect hernia space was identified.?? The indirect hernia sac was noted and peritoneum was dissected bluntly from the spermatic cord. A small cord lipoma was identified and that was reduced from the inguinal canal. The incarcerated fat was dissected off spermatic cord and then removed in pieces through the 5 mm port.?? When adequate space was developed for mesh placement, a Left sided Parietex? mesh was used and positioned around the spermatic cord. The mesh was tacked medially and laterally with?tacks.? Additional local anesthetic was injected directly into pre-peritoneal space. ? The space was deflated under direct visualization and mesh appeared to be still lying in a good position. The ports were then removed. Anterior sheath was then closed with a running 0-0 vicryl suture. Skin was closed with 4-0 monocryl using subcuticular stitch. Steri strips were applied over the laparoscopic?incisions. ? All counts were correct at the end of the case. Patient tolerated the procedure well and was transferred to PACU without any complications. Findings: small indirect left inguinal hernia and small cord lipoma. Anesthesia: GETA Surgeon: Ashutosh De La Cruz MD Estimated blood loss (mL): 5 Condition: stable Disposition: PACU
[2024-02-20] MEDS: CEFAZOLIN 2 GM INJ IVP (09:05)
[2024-02-20] MEDS: BUPIVACAINE 0.25% 30 ML INJECTION (09:41)
--- NOTE | 2024-02-20 10:23 | W.ANESCHARGE ---
Anesthesia Charges Start Date/Time Anesthesia Start Date: 02/20/24 Anesthesia Start Time: 08:59 Stop Date/Time Anesthesia Stop Date: 02/20/24 Anesthesia Stop Time: 10:20
[2024-02-20] MEDS: HYDROCODONE-ACETAMIN 5-325 MG 1 TAB PO (11:50)
== END 2024-02-20 12:14 | disposition home or self-care (01) ==
PROVIDERS: PCP Family Medicine; Visit Provider Surgery
PROC: (CPT 49650; principal; 2024-02-20 08:30)
DX: K40.90 Unilateral inguinal hernia, without obstruction or gangrene, not specified as recurrent (principal)
CPT/HCPCS: 49650; 00830; A9270; C1781; J0330; J0665; J0690; J1100; J1885; J2405; J2704; J2710; J3010; J7120

== ENCOUNTER 2025-01-28 09:05 | Outpatient (CLI) | payer MEDICARE, SELFPAY | END 2025-01-28 09:06 | disposition home or self-care (01) | PROVIDERS: PCP Family Medicine; Visit Provider Family Medicine | DX: R42 Dizziness and giddiness (principal); R53.83 Other fatigue; R51.9 Headache, unspecified; Z13.6 Encounter for screening for cardiovascular disorders; Z12.5 Encounter for screening for malignant neoplasm of prostate | CPT/HCPCS: 80048; 80061; 85025; G0103 ==

== ENCOUNTER 2025-09-17 10:27 | Outpatient (CLI) | payer MEDICARE, SELFPAY | END 2025-09-17 10:28 | disposition home or self-care (01) | PROVIDERS: PCP Family Medicine; Visit Provider Internal Medicine | DX: R41.3 Other amnesia (principal) | CPT/HCPCS: 80053; 80061; 84443 ==

== ENCOUNTER 2025-09-23 14:46 | Outpatient (CLI) | payer MEDICARE, SELFPAY ==
--- NOTE | 2025-09-23 15:00 | CRLHL7_ITS ---
For Patients: As a result of the Century Cures Act, medical imaging exams and procedure reports are released immediately into your electronic medical record. You may view this report before your referring provider. If you have questions, please contact your health care provider. INDICATION: Memory loss. TECHNIQUE: Noncontrast CT of the head with multiplanar reconstruction utilizing bone and soft tissue algorithms. COMPARISON: MRI brain dated 02/01/2023. FINDINGS: No acute intracranial hemorrhage. Scattered hypoattenuation within the supratentorial white matter, nonspecific, but commonly reflecting chronic small vessel ischemic changes. Similar mild diffuse parenchymal volume loss. The ventricles are unchanged in size. No abnormal extra-axial fluid collection is identified. Intact calvarium. Symmetric globes. Moderate mucosal thickening within the ethmoid and right maxillary sinuses. IMPRESSION: 1. No acute intracranial abnormality. 2. Mild diffuse parenchymal volume loss and chronic small vessel ischemic changes, similar to prior MRI dated 02/01/2023. Please note that all CT scans at this facility use dose modulation, iterative reconstruction, and/or weight-based dosing when appropriate to reduce radiation dose to as low as reasonably achievable. Dictated by Clyde Bernal MD @ 09/23/2025 3:44:07 PM (Electronically Signed)
== END 2025-09-23 14:47 | disposition home or self-care (01) ==
LOC: CT 14:47
PROVIDERS: PCP Family Medicine; Visit Provider Internal Medicine
DX: I67.89 Other cerebrovascular disease (principal); R41.3 Other amnesia; J32.9 Chronic sinusitis, unspecified
CPT/HCPCS: 70450